=== PATIENT | male | born 1950 | race Two or more races ===

== ENCOUNTER 2017-01-15 04:56 | Inpatient (IN) | payer MEDICARE, OTHER ==
[2017-01-15 05:48] LABS: Hematocrit 29 % (42-52); Hemoglobin 9.6 g/dl (14.0-18.0); Mean Corpuscular HGB Conc 33 g/dl (31-36); Mean Corpuscular Hemoglobin 30 pg (27-31); Mean Corpuscular Volume 90 fL (80-94); Mean Platelet Volume 9 um3 (7.4-10.4); Red Blood Count 3.21 10^6/ul (4.0-5.4); Red Cell Distribution Width 13 % (10.5-15); White Blood Count 11.3 10^3/ul (3.5-10.8)
[2017-01-15 06:06] LABS: Albumin 3.8 g/dL (3.2-5.2); BUN/Creatinine Ratio 43.2 (8-20); Calcium 8.8 mg/dL (8.6-10.3); EGFR Non-African American 95.6 (>60); Globulin 2.4 g/dL (2-4); Potassium 3.7 mmol/L (3.5-5.0); Total Bilirubin 0.4 mg/dL (0.2-1.0); Total Protein 6.2 g/dL (6.4-8.9)
[2017-01-15 06:09] LABS: Troponin I 0.01 ng/mL (<0.04)
[2017-01-15] MEDS ORDERED: Pantoprazole IV* 40 MG IV ONE (06:17)
[2017-01-15] MEDS ORDERED: NS 0.9% 1000 ML* 1,000 ML IV ONE (06:19)
[2017-01-15] MEDS ORDERED: Pantoprazole IV* 40 MG ONE (06:51)
[2017-01-15] MEDS ORDERED: NS 0.9% 1000 ML* 1,000 ML IV SCH ×2 (07:30→18:00)
--- NOTE | 2017-01-15 07:56 | RAD ---
HISTORY: Hypotension COMPARISONS: March 25, 2012 VIEWS:1: Single frontal portable view of the chest at 5:40 AM FINDINGS: LINES AND TUBES: None. CARDIOMEDIASTINAL SILHOUETTE: The cardiomediastinal silhouette is normal for portable technique. PLEURA: The costophrenic angles are sharp. No pleural abnormalities are noted. LUNG PARENCHYMA: The lungs are clear. ABDOMEN: The upper abdomen is clear. There is no subphrenic gas. BONES AND SOFT TISSUES: No bone or soft tissue abnormalities are noted. IMPRESSION: NO ACTIVE CARDIOPULMONARY DISEASE.
[2017-01-15] MEDS: Atorvastatin* 10 MG TAB PO SCH (08:48)
[2017-01-15] MEDS: Pantoprazole IV* 80 MG in NS 0.9% 250 ML* 250 ML IV SCH ×3 (08:54→18:17)
[2017-01-15 09:24] LABS: Hematocrit 25 % (42-52); Hemoglobin 8.4 g/dl (14.0-18.0)
--- NOTE | 2017-01-15 14:10 | HP ---
HISTORY AND PHYSICAL: DATE OF ADMISSION: 01/15/17 PROVIDER: Rell Young NP ATTENDING PHYSICIAN: Dr. Garrett * (report dictated by Rell Young NP) PRIMARY CARE PHYSICIAN: Dr. Lozada. CHIEF COMPLAINT: Syncope and black stools. HISTORY OF PRESENT ILLNESS: Mr. Holley is a 66-year-old male with a past medical history of coronary artery disease, status post stent placement, who reports yesterday he had 2 syncopal episodes, where he completely lost consciousness. His witnessed these episodes and reports he was unconscious just for a few seconds to possibly a minute. The patient reports that he stood and felt very dizzy and then lost consciousness and upon waking, he reported "extreme sweating." The patient denies any emesis. Yesterday, he started to have dark, black, tarry, dark red stools, reporting 2 stools yesterday. His took his blood pressure at home and noted that it was systolically in the 80s. The patient did not want to come to the hospital and it was thought that he possibly just had a viral gastroenteritis. The patient then felt fine throughout the rest of the day. He reports that he woke around 3 a.m. and had another large dark, black, tarry stool. At that time, his took his blood pressure and it was noted to be 68/44 and she insisted he come to the emergency department for further evaluation. In the emergency department , it was noted that his H and H are 9.6 and 29. The emergency room physician did a rectal and the stool occult was positive for blood. His initial pressure in the emergency department was 139/85 and has remained stable since. The patient received 1 L of normal saline in the emergency department and was given 80 mg IV Protonix bolus. The patient denies any increased use of aspirin or NSAIDs. Hospitalist was asked to evaluate the patient for admission. PAST MEDICAL HISTORY: 1. Coronary artery disease, status post stent to the LAD. 2. Prediabetic, diet controlled. HOME MEDICATIONS: 1. Aspirin 81 mg p.o. daily. 2. Simvastatin 20 mg p.o. daily. 3. Metoprolol tartrate 25 mg p.o. b.i.d. ALLERGIES: No known allergies. FAMILY HISTORY: The patient reports his mother had a history of coronary artery disease with history of NH. SOCIAL HISTORY: The patient has a long-term history of tobacco abuse, quitting approximately 8 years ago, reporting he smoked for 42 years, 2 packs a day. Denies alcohol use. He lives at home with his , Mahi, who is his healthcare proxy. Her number is [phone]. REVIEW OF SYSTEMS: A 14-point review of systems was performed. All the pertinent positives and negatives are mentioned in the history of present illness. Other remaining systems are negative. PHYSICAL EXAMINATION GENERAL APPEARANCE: Alert and oriented x3, 66-year-old, well-developed male, lying in the emergency department stretcher, in no acute distress. VITAL SIGNS: Temperature 96.8, heart rate 82, respirations 16, O2 sat 99% on room air, blood pressure 142/71. HEENT: Head is normocephalic, atraumatic. Pupils are equal and reactive to light. Oropharynx is clear. Moist mucous membranes. Good dentition. NECK: Supple. No cervical or supraclavicular lymphadenopathy. RESPIRATORY: Lungs are clear to auscultation bilaterally. Good aeration throughout. CARDIAC: S1, S2. No murmurs, rubs, or gallops appreciated. No lower extremity edema noted. 2+ DP pulses bilaterally. ABDOMEN: Soft, nontender, and nondistended. Normal bowel sounds x4. MUSCULOSKELETAL: No clubbing or cyanosis noted. Full range of motion in all extremities. Strength is 5/5 throughout. NEURO: Cranial nerves II through XII are grossly intact. Moves all extremities equally. Sensation to lower extremities is intact to light touch. PSYCH: Alert and oriented x3. Appropriate to situation. SKIN: No rashes, lesions, or open wounds noted. DIAGNOSTIC STUDIES/LAB DATA: WBC is 11.3, RBC 3.21, Hgb 9.6, Hct 29, MCV 90, MCH 30, MCHC 33, RDW 13, and platelet count 242. INR 1.04. Sodium 133, potassium 3.4, chloride 102, carbon dioxide 24, anion gap 7, BUN 35, creatinine 0.81, glucose 181, lactic acid 1.5, calcium 8.8. Total bilirubin 0.40, AST 13, ALT 13, alkaline phosphatase 33. Troponin 0.01. Total protein 6.2, albumin 3.8. ASSESSMENT AND PLAN: Mr. Holley is a 66-year-old male with a past medical history of coronary artery disease, status post stent placement and prediabetes , who presents to the emergency department today with report of syncope x2 yesterday, hypotension, and dark, tarry stools. 1. Upper gastrointestinal bleed. Suspect the patient's syncope is secondary to hypovolemia with the known blood pressure in the 60s yesterday. The patient will be admitted to the hospitalist service with monitoring on telemetry. We will trend H and H, check second troponin. Obtain orthostatic vital signs. Maintain two IVs at all times. The patient already received 1 L of normal saline in the emergency department. We will start the patient at a rate of normal saline at 125 mL an hour times another liter at this time. We will reassess at this time. Start Protonix drip. I spoke with Dr. Chavarria, our office clinician, who will most likely perform an upper endoscopy late this afternoon. N.P.O. status. The patient is hemodynamically stable at this time and his last bowel movement was at 3 a.m. 2. Syncope. Suspect this is all secondary to hypovolemia in the setting of gastrointestinal bleed. We will check second troponin and monitor on telemetry. I do not think the patient needs a further cardiac workup. 3. Coronary artery disease, stable. Hold aspirin and beta ye at this time. May resume beta ye later today if the patient remains hemodynamically stable. Continue statin. 4. Prediabetes. The patient was noted to have a blood sugar of 181 in the emergency department. We will add on hemoglobin A1c. 5. DVT prophylaxis. SCDs only in the setting of gastrointestinal bleed. 6. Code status. Full code. 7. Hospital status. Observation. TIME SPENT: Approximately 60 minutes was spent on this admission. RELL YOUNG NP CC: Dr. Lozada* [id number]/[facility] #: [id number] MAO
[2017-01-15] MEDS ORDERED: Midazolam* 1 MG/ML 10 ML VIAL (10 MG) ONE (15:29)
[2017-01-15] MEDS ORDERED: fentaNYL* 50 MCG/ML 2 ML VIAL (100 MCG VIAL) ONE (15:29)
--- NOTE | 2017-01-15 16:23 | PN ---
Hospitalist Progress Note Per Gi upper endoscopy showed small stomach ulcer, non-bleeding. CloTest may be positive?? Pending but highly suspicious. Ok to send home tomorrow if stable. Treat for hpylori if positive. Ok to resume ASA. F/u closely with PCP. Pt should undergo colonoscopy (never done).
[2017-01-15 17:17] LABS: Hematocrit 23 % (42-52); Hemoglobin 7.4 g/dl (14.0-18.0)
--- NOTE | 2017-01-15 21:01 | ED ---
Alfred Gutierrez Billy, scribed for Subhash Al MD on 01/15/17 at 0607 . Syncope/Near Syncope - HPI Summary HPI Summary: Patient is a 66 year-old male coming to [facility] for evaluation of 2x episodes of syncope yesterday. He states that he stood up, felt dizzy, and then lost consciousness. There was diaphoresis. Patient does not remember the incident very well, but his was home during the episodes. Patient denies recent illness. He has had dark, chocolate-colored bowel movements. Patient takes 81mg ASA daily. His measured his BP at home at 68/44. - History Of Current Complaint Chief Complaint: EDSyncope Time Seen by Provider: 01/15/17 05:16 Hx Obtained From: Patient Onset/Duration: Sudden Onset Context: Unwitnessed Activity At Onset: Exertion - when he stands up Associated Head Trauma: No Aggravating Factor(s): Nothing Alleviating Factor(s): Spontaneous Resolution Associated Signs And Symptoms: Diaphoresis, Dizzy, Other - dark BM - Allergies/Home Medications Allergies/Adverse Reactions: Allergies Allergy/AdvReac Type Severity Reaction Status Date / Time No Known Allergies Allergy Verified 01/15/17 05:02 PMH/Surg Hx/FS Hx/Imm Hx Endocrine/Hematology History: Denies: Hx Diabetes Cardiovascular History: Reports: Hx Angina, Hx Coronary Artery Disease, Hx Hypercholesterolemia, Hx Hypertension Denies: Hx Myocardial Infarction, Hx Valvular Heart Disease Respiratory History: Denies: Hx Asthma, Hx Chronic Obstructive Pulmonary Disease (COPD) Infectious Disease History: No Infectious Disease History: Denies: Traveled Outside the [place] in Last 30 Days - Family History Known Family History: Positive: Cardiac Disease - Social History Alcohol Use: Rare Substance Use Type: Reports: None Hx Tobacco Use: Yes Smoking Status (MU): Former Smoker Review of Systems Positive: Skin Diaphoresis. Negative: Fever Negative: Erythema Negative: Sore Throat Negative: Chest Pain Negative: Shortness Of Breath, Cough Positive: Other - dark BM. Negative: Vomiting, Nausea Negative: Myalgia, Edema Negative: Rash Positive: Syncope All Other Systems Reviewed And Are Negative: Yes Physical Exam - Summary Physical Exam Summary: Constitutional: Well-developed, Well-nourished, Alert. (-) Distressed Skin: Warm, Dry HENT: Normocephalic; Atraumatic Eyes: Conjunctiva normal Neck: Musculoskeletal ROM normal neck. (-) JVD, (-) Stridor, (-) Tracheal deviation Cardio: Rhythm regular, rate normal, Heart sounds normal; Intact distal pulses; The pedal pulses are 2+ and symmetric. Radial pulses are 2+ and symmetric. (-) Murmur Pulmonary/Chest wall: Effort normal. (-) Respiratory distress, (-) Wheezes, (-) Rales Abd: Soft, (-) Tenderness, (-) Distension, (-) Guarding, (-) Rebound Rectal: Positive melena. Musculoskeletal: (-) Edema Lymph: (-) Cervical adenopathy Neuro: Alert, Oriented x3 Psych: Mood and affect Normal Triage Information Reviewed: Yes Vital Signs On Initial Exam: Initial Vitals Temp Pulse Resp BP Pulse Ox 96.8 F 107 14 139/85 100 01/15/17 04:57 01/15/17 04:57 01/15/17 04:57 01/15/17 04:57 01/15/17 04:57 Vital Signs Reviewed: Yes Diagnostics - Vital Signs Vital Signs Temp Pulse Resp BP Pulse Ox 01/15/17 05:38 86 16 133/75 97 01/15/17 05:30 81 16 146/76 99 01/15/17 05:26 79 20 142/73 98 01/15/17 05:24 82 99 01/15/17 05:00 96.8 F 101 14 139/85 100 01/15/17 04:57 96.8 F 107 14 139/85 100 - Laboratory Lab Results: Lab Results 01/15/17 01/15/17 Range/Units 05:30 05:30 WBC 11.3 H (3.5-10.8) 10^3/ul RBC 3.21 L (4.0-5.4) 10^6/ul Hgb 9.6 L (14.0-18.0) g/dl Hct 29 L (42-52) % MCV 90 (80-94) fL MCH 30 (27-31) pg MCHC 33 (31-36) g/dl RDW 13 (10.5-15) % Plt Count 242 (150-450) 10^3/ul MPV 9 (7.4-10.4) um3 Neut % (Auto) 79.5 (38-83) % Lymph % (Auto) 14.5 L (25-47) % Barber % (Auto) 5.0 (1-9) % Eos % (Auto) 0.4 (0-6) % Baso % (Auto) 0.6 (0-2) % Absolute Neuts (auto) 9.0 H (1.5-7.7) 10^3/ul Absolute Lymphs (auto) 1.6 (1.0-4.8) 10^3/ul Absolute Monos (auto) 0.6 (0-0.8) 10^3/ul Absolute Eos (auto) 0 (0-0.6) 10^3/ul Absolute Basos (auto) 0.1 (0-0.2) 10^3/ul Absolute Nucleated RBC 0.01 10^3/ul Nucleated RBC % 0.1 INR (Anticoag Therapy) 1.04 (0.89-1.11) APTT 22.6 L (26.0-36.3) seconds Result Diagrams: 01/15/17 16:55 01/15/17 05:30 Lab Statement: Any lab studies that have been ordered have been reviewed, and results considered in the medical decision making process. - Radiology CXR Xray Interpretation: No Acute Changes Radiology Interpretation Completed By: ED Physician - EKG 0518 EKG Interpretation: NSR 80 BPM, no STEMI Course/Dx Assessment/Plan: 66 year-old male coming to [facility] for evaluation of 2x episodes of syncope. Labs reviewed. Hgb/Hct is 9.6/29. CXR shows no active disease, EKG is WNL. In the ED course, patient was given protonix and IV fluids. Patient care was discussed with Dr. Salazar, who accepted the patient for admission. - Diagnoses Provider Diagnoses: GI bleed due to NSAIDs, Syncope, Anemia - Physician Notifications Discussed Care Of Patient With: Dr. Salazar (hospitalist) @ 0635: accepts admission. - Critical Care Time Critical Care Time: 30-74 min - hemodynamic monitoring, blood products ordered Discharge - Discharge Plan Condition: Stable Disposition: ADMITTED TO [facility] documentation as recorded by the Alfred patel Billy accurately reflects the service I personally performed and the decisions made by , Subhash Al MD.
[2017-01-16 00:22] LABS: Urine Bilirubin Negative (Negative); Urine Glucose Negative (Negative); Urine Nitrite Negative (Negative)
[2017-01-16] MEDS: Pantoprazole IV* 80 MG in NS 0.9% 250 ML* 250 ML IV SCH (04:20)
[2017-01-16 05:16] LABS: Hematocrit 27 % (42-52); Hemoglobin 8.9 g/dl (14.0-18.0); Mean Corpuscular HGB Conc 33 g/dl (31-36); Mean Corpuscular Hemoglobin 29 pg (27-31); Mean Corpuscular Volume 88 fL (80-94); Mean Platelet Volume 9 um3 (7.4-10.4); Red Blood Count 3.06 10^6/ul (4.0-5.4); Red Cell Distribution Width 15 % (10.5-15); White Blood Count 8.1 10^3/ul (3.5-10.8)
[2017-01-16 05:18] LABS: Add Diff/Slide Review? Slide Review Added; Comments Flag Yes
[2017-01-16 05:35] LABS: BUN/Creatinine Ratio 23.9 (8-20); EGFR African American 143.2 (>60); EGFR Non-African American 111.3 (>60); Potassium 3.9 mmol/L (3.5-5.0)
[2017-01-16] MEDS: Atorvastatin* 10 MG TAB PO SCH (08:59)
[2017-01-16] MEDS ORDERED: Amoxicillin CAP* 500 MG PO SCH (09:00)
[2017-01-16] MEDS ORDERED: Clarithromycin TAB* 500 MG PO SCH (09:00)
--- NOTE | 2017-01-16 11:27 | PRO ---
DATE OF PROCEDURE: 01/15/17 - ROOM #446 DATE OF : 52 PROCEDURE PERFORMED: Gastroscopy with gastric biopsy and CLOtest biopsy. MEDICINES USED: Versed 5 mg IV and fentanyl 25 mcg IV. NARRATIVE: This is a 66-year-old gentleman who is admitted this morning with a GI bleed. He did have a syncopal episode at home and was reporting black stools. On arrival here, he was transiently hypotensive, although with IV fluids that corrected, he was found to be anemic. He has now been stabilized and is now undergoing upper endoscopy. PROCEDURE: After the procedure was discussed with the patient, risks and benefits were outlined, written consent was obtained; the patient was placed in the left lateral decubitus position; and conscious sedation was administered. A video diagnostic gastroscope was inserted orally and passed very carefully into the esophagus. The esophagus, stomach, and duodenum to the second to third portion were well visualized. The patient tolerated the procedure well and there were no immediate complications. FINDINGS: The esophagus was normal. There was no evidence of erosive change or stricture. The stomach was entered. There was some bile in the stomach, but no blood or coffee-ground material. The cardia, fundus, and body of the stomach was unremarkable; however, in the gastric antrum, there was an 8 mm ulceration with a clean wide base. No other lesion was detected. The pylorus was normal and patent. The duodenal bulb was normal and the second to third portion of the duodenum was normal with a normal folding pattern. The gastroscope was then brought back into the stomach, where a CLOtest biopsy was obtained from the antrum as well as a biopsy of the gastric ulcer. CONCLUSION: Gastric ulcer as described above, biopsies obtained and CLOtest biopsy obtained. RECOMMENDATION: The ulcer has a low chance of rebleeding given his endoscopic appearance and the patient could likely be discharged within the next 24 hours. Biopsies will be followed upon. The patient should remain on PPI therapy for 2 months. His baby aspirin could probably be restarted. The patient is encouraged to have a colonoscopy as well as he never had one and he will discuss that with his primary care provider. CC: Roxi Lozada MD* [id number]/[facility] #: [id number] MAO
[2017-01-16 12:56] VITALS: BP 122/51
--- NOTE | 2017-01-17 07:46 | DS ---
DISCHARGE SUMMARY: DATE OF ADMISSION: 01/15/17 DATE OF DISCHARGE: 01/16/17 PROVIDER: Rell Young NP ATTENDING PHYSICIAN: Reshma Garrett DO *(report dictated by Rell Young NP) PRIMARY CARE PROVIDER: Roxi Lozada MD PRIMARY DIAGNOSES: 1. Upper gastrointestinal bleed. 2. Acute blood loss anemia. 3. H. pylori infection. 4. Gastric ulcer. SECONDARY DIAGNOSES: 1. Coronary artery disease, status post stent to the LAD. 2. Diabetes, diet controlled, hemoglobin A1c of 6.3. DISCHARGE MEDICATIONS: 1. Aspirin 81 mg p.o. daily. 2. Simvastatin 20 mg p.o. daily. 3. Metoprolol tartrate 25 mg p.o. b.i.d. 4. Omeprazole 20 mg p.o. b.i.d. 5. Clarithromycin 500 mg p.o. b.i.d. x2 weeks. 6. Amoxicillin 1000 mg p.o. b.i.d. x2 weeks. HISTORY OF PRESENT ILLNESS AND HOSPITAL COURSE: Please see history and physical by this author for full admission details. In summary, this is a 66- year-old male, who presented to the emergency department on 01/15/17 reporting the day prior he had 2 syncopal episodes with diaphoresis along with 2 dark black tarry stools. The patient thought that he had a viral gastroenteritis. His took his blood pressure and noted his systolic in the 80s. The patient felt well last evening and went to bed; however, he woke up at 3 a.m. and had another large dark black tarry bowel movement. His noted his blood pressure was 68/44 and she insisted he come to the emergency department for further evaluation. While in the emergency department, it was noted that his H and H was 9.6 and 29. He presented with a BUN of 35. His stool for occult blood was positive. He was admitted to the hospitalist service to telemetry for further monitoring. His H and Hs were trended and at the lowest was 7.4 and 23. He did receive 2 units of packed red blood cells at that time. The patient underwent an upper endoscopy by Dr. Chavarria yesterday afternoon. Please note, he had had no further bowel movements since prior to hospitalization. Dr. Chavarria did find a gastric ulcer approximately 8 mm ulceration with a clean wide base that was nonbleeding. He noted no blood or coffee-ground emesis in the stomach. Please see his full report for details. The patient's CLOtest was positive and recommendation was to treat him for H. pylori for [address] Chavarria also recommends the patient should undergo a colonoscopy as the patient has not had a prior history of one and reports that he will refer this to the primary as the patient is followed by the [facility]. Per Dr. Chavarria, okay to resume low-dose aspirin. The patient has done well throughout hospitalization. He has remained hemodynamically stable throughout. The patient never had any complaints of stomach pain. Today, he is ambulating around his room and reports he feels back to his baseline. The patient was noted to be hyperglycemic on admission with a blood glucose of 181, this morning fasting was 124. His hemoglobin A1c is 6.3. We will refer back to primary as the patient states he is diet controlled. The patient is stable for discharge to home. DISCHARGE PLAN: 1. Follow up with Dr. Lozada within 3 to 5 days. 2. Plan for a followup CBC on 01/20/17, with results to PCP. 3. The patient was instructed to return to the emergency department with any worsening or concerning symptoms. 4. The patient patient was instructed to discuss scheduling a colonoscopy with his PCP. TIME SPENT: Approximately 60 minutes was spent on this discharge. RELL YOUNG NP CC: Dr. Lozada* [id number]/[facility] #: [id number] [facility] HOSPITALXavier
== END 2017-01-16 13:55 | disposition home or self-care (01) | DRG 378 ==
LOC: ED 04:56 → MEDTELE 06:41
PROVIDERS: ADMIT Internal Medicine; ATTEND Hospitalist
PROC: 0DB78ZX Excision of Stomach, Pylorus, Via Natural or Artificial Opening Endoscopic, Diagnostic (ICD-10-PCS; principal; 2017-01-15)
PROC: 0DB68ZX Excision of Stomach, Via Natural or Artificial Opening Endoscopic, Diagnostic (ICD-10-PCS; 2017-01-15)
PROC: 30233N1 Transfusion of Nonautologous Red Blood Cells into Peripheral Vein, Percutaneous Approach (ICD-10-PCS; 2017-01-15)
DX: K92.1 Melena (principal); D62 Acute posthemorrhagic anemia; A04.8 Other specified bacterial intestinal infections; K25.9 Gastric ulcer, unspecified as acute or chronic, without hemorrhage or perforation; E86.1 Hypovolemia; I25.10 Atherosclerotic heart disease of native coronary artery without angina pectoris; E11.9 Type 2 diabetes mellitus without complications; Z95.5 Presence of coronary angioplasty implant and graft; Z79.82 Long term (current) use of aspirin; Z79.899 Other long term (current) drug therapy; Z82.49 Family history of ischemic heart disease and other diseases of the circulatory system; Z87.891 Personal history of nicotine dependence
CPT/HCPCS: 36415; 71010; 80048; 80053; 81003; 82272; 83036; 83605; 84484; 85014; 85018; 85025; 85610; 85730; 86850; 86900; 86901; 86922; 87040; 87077; 88305; 93005; A9270-GY; J2250; J3010; P9040